=== PATIENT | female | born 1945 | race Caucasian/White ===

== ENCOUNTER → 2020-12-11 | Outpatient (CLI) | payer MEDICARE, BC ==
[~2020-12-11] MED LIST: CHLORTHALIDONE25 MG PO; KRILL OIL500 MG PO; LIPITOR40 MG PO; MULTIVITAMINS1 EAC1 PO; STOOL SOFTENER100 MG PO; SYNTHROID 50 M50 MCG PO; VITAMIN D2000 UNI1 PO
== END ==
LOC: OPSV 11:00
DX: M81.0 Age-related osteoporosis without current pathological fracture (principal)
CPT/HCPCS: 96372

== ENCOUNTER → 2021-06-24 | Outpatient (CLI) | payer MEDICARE, BC ==
[~2021-06-24] VITALS: Ht 152.4 cm; Wt 65.3 kg
== END ==
LOC: OPSV 06-15 12:00
DX: M81.0 Age-related osteoporosis without current pathological fracture (principal)
CPT/HCPCS: 96372

== ENCOUNTER → 2021-07-10 | Outpatient (CLI) | payer MEDICARE, BC | LOC: MAMO 06-05 11:00 | DX: Z12.31 Encounter for screening mammogram for malignant neoplasm of breast (principal) | CPT/HCPCS: 77063; 77067 ==

== ENCOUNTER → 2022-01-07 | Outpatient (CLI) | payer MEDICARE ==
[~2022-01-07] VITALS: Ht 157.5 cm; Wt 63.0 kg
== END ==
LOC: OPSV 15:00
DX: M81.0 Age-related osteoporosis without current pathological fracture (principal)
CPT/HCPCS: 96372